=== PATIENT | female | born 1955 | race Caucasian/White ===

== ENCOUNTER 2017-08-08 14:50 | Emergency (ER) | payer OTHER ==
[~2017-08-08] VITALS: Ht 162.6 cm; Wt 68.1 kg
[~2017-08-08 14:50] MED LIST: AMITIZA8 MICROGRA PO; BENTYL20 MG PO; CLONIDINE HCL0.1 MG PO; COUMADIN,JANTO7.5 MG PO; COUMADIN,JANTOVE5 MG PO; COUMADIN2.5 MG PO; COUMADIN5 MG PO; DESYREL300 MG PO; DIAZEPAM10 MG PO; DOXEPIN HCL75 MG PO; Ecotrin PO; FIORICET WI1 CAPSULE PO; FLEXERIL10 MG PO; HYDROCODON-ACE1 EAC7 PO; INDERAL60 MG PO; KLONOPIN0.5 M1 PO; LEVEMIR100 UNIT/1 SC; LUNESTA1 MG PO; METFORMIN HCL500 MG PO; MOTRIN600 MG PO; PROAIR HFA8.5 GM IH; RESTASIS 01 DROP/0.4 BOTH EYES; SINGULAIR10 MG PO; SKELAXIN800 MG PO; SOMA250 MG PO; Singulair PO; TYLOX1 CAPSULE PO; ULTRAM50 MG PO; VALIUM10 MG PO; VALIUM2 MG PO; VITAMIN D250000 UNIT PO; Valium PO; XANAX1 MG PO; ZESTORETIC,P1 TABLE1 PO; Zofran IV
[2017-08-08 16:34] LABS: HEMATOCRIT 41.2 % (36.0-46.0); MCH 31.6 PG (29.0-34.0); MCV 90.4 FL (83-99); PLATELET COUNT 144 K/uL (156-360); RBC DIS.WIDTH-CV 11.7 % (11.8-14.6); RBC DIS.WIDTH-SD 38.5 % (39-53); RED BLOOD COUNT 4.56 M/uL (3.80-5.20); WHITE BLOOD COUNT 5.2 K/uL (4.1-10.2)
[2017-08-08 16:40] LABS: INTER. NORMALIZED RATIO 2.5
[2017-08-08 16:43] LABS: PTT 41.9 SEC (25-37)
[2017-08-08 16:48] LABS: CHLORIDE 105 mEq/L (99-109); POTASSIUM 3.8 mEq/L (3.7-5.4); SODIUM 140 mEq/L (136-147)
[2017-08-08 16:49] LABS: GLUCOSE 132 mg/dL (70-99)
[2017-08-08 16:51] LABS: ANION GAP 11 MEQ/L (2-14)
[2017-08-08 16:53] LABS: GFR ESTIMATE (CALCULATED) > 59 mL/min/
[2017-08-08 16:54] LABS: UREA NITROGEN (BUN) 14 mg/dL (9-23)
[2017-08-08 18:37] VITALS: BP 158/94
== END 2017-08-08 18:38 | disposition home or self-care (01) ==
LOC: EME 14:50
PROVIDERS: Physician Assistant
DX: H11.31 Conjunctival hemorrhage, right eye (principal); E11.9 Type 2 diabetes mellitus without complications; I10 Essential (primary) hypertension; I25.2 Old myocardial infarction; Z86.711 Personal history of pulmonary embolism; Z79.01 Long term (current) use of anticoagulants; Z86.79 Personal history of other diseases of the circulatory system; Z88.7 Allergy status to serum and vaccine; Z88.2 Allergy status to sulfonamides; Z88.1 Allergy status to other antibiotic agents; Z88.0 Allergy status to penicillin
CPT/HCPCS: 80048; 85027; 85610; 85730; 99281; 99284

== ENCOUNTER 2017-09-11 00:11 | Emergency (ER) | payer OTHER ==
[~2017-09-11] VITALS: Ht 162.6 cm; Wt 68.2 kg
[2017-09-11 01:37] LABS: EOSINOPHIL (%) 1.1 % (0-5); EOSINOPHIL COUNT 0.1 K/uL (0-0.3); HEMATOCRIT 43.2 % (36.0-46.0); IMMATURE GRANULOCYTE (%) 0.2 % (0.0-0.7); INSTRUMENT ABS NEUTROPHIL CT 6.3 K/uL; LYMPHOCYTE COUNT 1.3 K/uL (1.0-2.8); MCH 31.6 PG (29.0-34.0); MCHC 35.6 G/DL (30.0-36.0); MCV 88.7 FL (83-99); MEAN PLAT.VOLUME 9.1 uM^3 (9.5-12.4); MONOCYTE (%) 6.5 % (3-12); MONOCYTE COUNT 0.5 K/uL (0-0.8); NEUTROPHIL (%) 76.3 % (45-76); NEUTROPHIL COUNT 6.3 K/uL (1.8-6.4); PLATELET COUNT 155 K/uL (156-360); RBC DIS.WIDTH-CV 11.8 % (11.8-14.6); RBC DIS.WIDTH-SD 37.9 % (39-53); RED BLOOD COUNT 4.87 M/uL (3.80-5.20); WHITE BLOOD COUNT 8.2 K/uL (4.1-10.2)
[2017-09-11 01:42] LABS: INTER. NORMALIZED RATIO 2.1; PROTHROMBIN TIME 23.8 SEC (10.2-12.9)
[2017-09-11 01:45] LABS: ADD MEDTOX COMMENT Y; AMPHETAMINE NEGATIVE (500 ng/mL); BARBITURATES NEGATIVE (200 ng/mL); BENZODIAZEPINES PRESUMPTIVE POSITIVE (150 ng/mL); COCAINE NEGATIVE (150 ng/mL); INTERNAL CONTROLS VALID? YES; METHADONE NEGATIVE (200 ng/mL); METHAMPHETAMINE NEGATIVE (500 ng/mL); OPIATES (MORPHINE) NEGATIVE (100 ng/mL); OXYCODONE NEGATIVE (100 ng/mL); PHENCYCLIDINE NEGATIVE (25 ng/mL); PROPOXYPHENE NEGATIVE (300 ng/mL); THC CANNABINOIDS NEGATIVE (50 ng/mL); TRICYCLIC ANTIDEPRESSANTS NEGATIVE (300 ng/mL)
[2017-09-11 01:45] LABS: CHLORIDE 105 mEq/L (99-109); POTASSIUM 3.6 mEq/L (3.7-5.4); SODIUM 140 mEq/L (136-147)
[2017-09-11 01:47] LABS: GLUCOSE 152 mg/dL (70-99)
[2017-09-11 01:49] LABS: ANION GAP 15 MEQ/L (2-14); TOTAL BILIRUBIN 0.4 mg/dL (0.0-1.0)
[2017-09-11 01:50] LABS: SERUM ETHYL ALCOHOL 27 mg/dL
[2017-09-11 01:51] LABS: ALKALINE PHOSPHATASE 64 IU/L (3-129); GFR ESTIMATE (CALCULATED) > 59 mL/min/
[2017-09-11 01:52] LABS: UREA NITROGEN (BUN) 14 mg/dL (9-23)
[2017-09-11 02:24] LABS: BENZODIAZEPINES, URINE SCREEN POSITIVE (200 ng/mL)
[2017-09-11 10:28] VITALS: BP 175/89
== END 2017-09-11 10:28 | disposition home or self-care (01) ==
LOC: EME → EDBD 00:11 → EME 00:11
PROVIDERS: Emergency Medicine
DX: F32.9 Major depressive disorder, single episode, unspecified (principal); S09.8XXA Other specified injuries of head, initial encounter; S20.311A Abrasion of right front wall of thorax, initial encounter; S00.83XA Contusion of other part of head, initial encounter; W19.XXXA Unspecified fall, initial encounter; F10.129 Alcohol abuse with intoxication, unspecified; Z79.01 Long term (current) use of anticoagulants; Z86.711 Personal history of pulmonary embolism
CPT/HCPCS: 70450; 71010; 80053; 84999; 85025; 85610; 90832; 90837; 99281; 99285; G0480